=== PATIENT | male | born 1935 | race Caucasian/White ===

== ENCOUNTER 2022-01-23 15:48 | Inpatient (IN) | payer MEDICARE, OTHER ==
[2022-01-23] MEDS ORDERED: Lidocaine 2% Jelly 10 ML Urojet MUCMEM ONE (17:01)
[2022-01-23] MEDS ORDERED: Sodium Chloride 0.9% 10 ML Syringe FLUSH PRN (17:20)
[2022-01-23] MEDS ORDERED: Sodium Chloride 0.9% 1,000 ML IV STA (17:26)
[2022-01-23] MEDS ORDERED: cefTRIAXone 1 GM in Sodium Chloride 0.9% 100 ML IV SCH (19:45)
[2022-01-23] MEDS: Dextrose 5%-0.45% NaCl 1,000 ML IV SCH (20:59)
[2022-01-23] MEDS: Cetirizine 10 MG Tab PO SCH (20:59)
[2022-01-23] MEDS: Thiamine 100 MG Tab PO SCH (21:00)
[2022-01-23] MEDS ORDERED: Cetirizine 1 MG/ML Solution ML 120 ML Bottle PO SCH (21:00)
[2022-01-23] MEDS: cefTRIAXone 1 GM in Sodium Chloride 0.9% 100 ML IV SCH (21:01)
[2022-01-23] MEDS: Acetaminophen 325 MG Tab PO PRN (21:44)
[2022-01-24] MEDS: Dextrose 5%-0.45% NaCl 1,000 ML IV SCH ×2 (04:09→16:39)
[2022-01-24] MEDS ORDERED: Magnesium Sulfate/Water 4 GM in Premix Bag 1 BAG IV ONE (08:15)
[2022-01-24] MEDS ORDERED: Magnesium Oxide 400 MG Tab PO ONE (09:00)
[2022-01-24] MEDS ORDERED: Magnesium Sulfate (4.06 MEQ/ML) 5 GM/10 ML SDV IV ONE (09:00)
[2022-01-24] MEDS: Cetirizine 10 MG Tab PO SCH (09:02)
[2022-01-24] MEDS: amLODIPine 5 MG Tab PO SCH (09:02)
[2022-01-24] MEDS: Enoxaparin 30 MG/0.3 ML Syringe SUBCUT SCH (09:32)
[2022-01-24 15:42] LABS: VITAMIN D,25-HYDROXY 18.6 ng/ml (30.0-100.0)
[2022-01-24] MEDS: Acetaminophen 325 MG Tab PO PRN (20:42)
[2022-01-24] MEDS: cefTRIAXone 1 GM in Sodium Chloride 0.9% 100 ML IV SCH (20:43)
[2022-01-24] MEDS: Thiamine 100 MG Tab PO SCH (20:43)
[2022-01-25] MEDS: Dextrose 5%-0.45% NaCl 1,000 ML IV SCH ×2 (00:43→09:07)
[2022-01-25] MEDS: Acetaminophen 325 MG Tab PO PRN ×2 (05:34→09:03)
[2022-01-25] MEDS: Enoxaparin 30 MG/0.3 ML Syringe SUBCUT SCH (09:01)
[2022-01-25] MEDS: Cetirizine 10 MG Tab PO SCH (09:02)
[2022-01-25] MEDS: amLODIPine 5 MG Tab PO SCH (09:02)
[2022-01-25] MEDS ORDERED: Magnesium Sulfate/Water 4 GM in Premix Bag 1 BAG IV ONE (11:30)
[2022-01-25] MEDS ORDERED: Cholecalciferol (Vitamin D3) 5,000 UNIT Tab PO SCH (11:30)
[2022-01-25 11:56] VITALS: BP 116/58; PULSE 63
== END 2022-01-25 17:09 | disposition home or self-care (01) | DRG 683 ==
LOC: JD.ED 15:48 → JD.MS 18:16 → OBSVTOIN 19:20
PROVIDERS: ADMIT Pediatrics; ATTEND Internal Medicine
DX: N17.9 Acute kidney failure, unspecified (principal); N13.9 Obstructive and reflux uropathy, unspecified; I25.810 Atherosclerosis of coronary artery bypass graft(s) without angina pectoris; N13.8 Other obstructive and reflux uropathy; N28.89 Other specified disorders of kidney and ureter; N40.1 Benign prostatic hyperplasia with lower urinary tract symptoms; F10.20 Alcohol dependence, uncomplicated; E83.42 Hypomagnesemia; R19.7 Diarrhea, unspecified; N13.30 Unspecified hydronephrosis; N32.3 Diverticulum of bladder; Z20.822 Contact with and (suspected) exposure to COVID-19; H91.90 Unspecified hearing loss, unspecified ear; H54.7 Unspecified visual loss; L28.2 Other prurigo; I49.3 Ventricular premature depolarization; I15.1 Hypertension secondary to other renal disorders; J45.909 Unspecified asthma, uncomplicated; R35.0 Frequency of micturition; M19.90 Unspecified osteoarthritis, unspecified site; L03.012 Cellulitis of left finger; Z88.8 Allergy status to other drugs, medicaments and biological substances; Z79.899 Other long term (current) drug therapy; Z95.1 Presence of aortocoronary bypass graft; Z87.891 Personal history of nicotine dependence; Z90.49 Acquired absence of other specified parts of digestive tract; Z85.828 Personal history of other malignant neoplasm of skin; Z87.81 Personal history of (healed) traumatic fracture
CPT/HCPCS: 36415; 80053; 81001; 82397; 83735; 84550; 85025; 85652; 86140; U0002; 51702; 74176; 74176-26; 80048; 82306; 82570; 83835; 83945; 83970; 84100; 84156; 84260; 84300; A9270-GY; J0696; J1650; J3475; J7042

== ENCOUNTER 2022-02-16 13:51 | Emergency (ER) | payer MEDICARE, OTHER ==
[2022-02-16 14:01] VITALS: BP 157/72; PULSE 71
[2022-02-16] MEDS ORDERED: Lidocaine 2% Jelly 10 ML Urojet MUCMEM ONE (14:06)
== END 2022-02-16 15:14 | disposition home or self-care (01) ==
LOC: JD.ED 13:51
DX: T83.038A Leakage of other urinary catheter, initial encounter (principal); I10 Essential (primary) hypertension; Z88.5 Allergy status to narcotic agent; Z95.1 Presence of aortocoronary bypass graft; Z79.899 Other long term (current) drug therapy
CPT/HCPCS: 99283

== ENCOUNTER 2022-02-22 15:52 | Emergency (ER) | payer MEDICARE, OTHER ==
[2022-02-22 16:28] VITALS: BP 166/76; PULSE 82
[2022-02-22] MEDS ORDERED: Lidocaine 2% Jelly 10 ML Urojet MUCMEM ONE (16:29)
== END 2022-02-22 17:54 | disposition home or self-care (01) ==
LOC: JD.ED 15:52
DX: R33.9 Retention of urine, unspecified (principal); Z46.6 Encounter for fitting and adjustment of urinary device; I10 Essential (primary) hypertension; Z88.8 Allergy status to other drugs, medicaments and biological substances; Z79.899 Other long term (current) drug therapy
CPT/HCPCS: 51702; 99283-25

== ENCOUNTER 2023-01-21 16:58 | Inpatient (IN) | payer MEDICARE, OTHER ==
[2023-01-21] MEDS ORDERED: Sodium Chloride 0.9% 10 ML Syringe FLUSH PRN (19:12)
[2023-01-21 20:17] LABS: CORONAVIRUS COVID-19 NAA NEGATIVE (NEGATIVE)
[2023-01-21] MEDS ORDERED: Calcium Gluconate 10% 1 GM/10 ML SDV IVPUSH ONE (20:39)
[2023-01-21] MEDS: Sodium Chloride 0.9% 1,000 ML IV SCH (20:49)
[2023-01-21] MEDS: Potassium Chloride 10 MEQ in Premix Bag 1 BAG IV SCH ×3 (20:58→23:15)
[2023-01-21] MEDS ORDERED: cefTRIAXone 1 GM in Sodium Chloride 0.9% 100 ML IV ONE (21:15)
[2023-01-21] MEDS ORDERED: Pantoprazole 40 MG Tab.CR PO ONE (22:29)
[2023-01-21] MEDS ORDERED: Magnesium Sulfate/Water 2 GM in Premix Bag 1 BAG IV ONE (22:32)
[2023-01-21] MEDS ORDERED: Acetaminophen 325 MG Tab PO PRN (23:15)
[2023-01-21] MEDS ORDERED: Ondansetron 4 MG/2 ML SDV IVPUSH PRN (23:15)
[2023-01-22] MEDS: Potassium Chloride 10 MEQ in Premix Bag 1 BAG IV SCH ×9 (00:53→22:26)
[2023-01-22] MEDS ORDERED: Magnesium Sulfate/Water 2 GM/50 ML BAG IV ONE (03:54)
[2023-01-22] MEDS ORDERED: Calcium Gluconate 10% 1 GM/10 ML SDV IVPUSH ONE (03:55)
[2023-01-22] MEDS ORDERED: Potassium Chloride 20 MEQ Tab.ER PO ONE (04:32)
[2023-01-22] MEDS: Heparin Sodium 5,000 Units/ML Vial SUBCUT SCH ×3 (06:54→21:02)
[2023-01-22] MEDS ORDERED: oxyCODONE 5 MG Tab PO PRN (09:00)
[2023-01-22] MEDS ORDERED: Albuterol 6.7 GM Inhaler INH PRN (09:01)
[2023-01-22] MEDS: Acetaminophen 325 MG Tab PO PRN ×3 (09:13→23:05)
[2023-01-22] MEDS: Sodium Chloride 0.9% 1,000 ML IV SCH (10:19)
[2023-01-22] MEDS ORDERED: Calcium Gluconate 10% 1 GM/10 ML SDV IV ONE (13:05)
[2023-01-22] MEDS ORDERED: Magnesium Sulfate/Water 4 GM in Premix Bag 1 BAG IV ONE (13:05)
[2023-01-22] MEDS: Potassium Chloride 20 MEQ Tab.ER PO SCH ×2 (14:23→20:44)
[2023-01-22] MEDS ORDERED: Sodium Chloride 0.9% 1,000 ML IV SCH (15:00)
[2023-01-22] MEDS: cefTRIAXone 1 GM in Sodium Chloride 0.9% 100 ML IV SCH (20:44)
[2023-01-22] MEDS: Famotidine 10 MG Tab PO SCH (20:44)
[2023-01-23] MEDS: Heparin Sodium 5,000 Units/ML Vial SUBCUT SCH ×3 (06:46→21:41)
[2023-01-23] MEDS: Formoterol/Mometasone 200-5 MCG 8.8 GM Inhaler IH SCH ×2 (08:01→20:12)
[2023-01-23] MEDS: Cetirizine 10 MG Tab PO SCH (08:32)
[2023-01-23] MEDS: Famotidine 10 MG Tab PO SCH ×2 (08:32→20:06)
[2023-01-23] MEDS: Potassium Chloride 20 MEQ Tab.ER PO SCH ×2 (08:32→20:06)
[2023-01-23] MEDS: Acetaminophen 325 MG Tab PO PRN ×3 (08:36→21:41)
[2023-01-23] MEDS ORDERED: Diclofenac Sodium 1% Gel 100 GM Tube TOP PRN (14:16)
[2023-01-23] MEDS: cefTRIAXone 1 GM in Sodium Chloride 0.9% 100 ML IV SCH (20:03)
[2023-01-24] MEDS: Acetaminophen 325 MG Tab PO PRN (04:35)
[2023-01-24] MEDS: Heparin Sodium 5,000 Units/ML Vial SUBCUT SCH ×3 (06:22→20:59)
[2023-01-24] MEDS ORDERED: Magnesium Sulfate/Water 4 GM in Premix Bag 1 BAG IV ONE (06:48)
[2023-01-24] MEDS: Famotidine 10 MG Tab PO SCH ×2 (08:12→20:55)
[2023-01-24] MEDS: Cetirizine 10 MG Tab PO SCH (08:12)
[2023-01-24] MEDS: Potassium Chloride 20 MEQ Tab.ER PO SCH ×2 (08:12→20:54)
[2023-01-24] MEDS: Formoterol/Mometasone 200-5 MCG 8.8 GM Inhaler IH SCH ×2 (08:36→20:37)
[2023-01-24] MEDS: Calcium Carbonate/Vitamin D3 600 MG-200 Units Tab PO SCH ×2 (10:41→17:40)
[2023-01-24] MEDS: Magnesium Oxide 400 MG Tab PO SCH ×2 (10:41→20:54)
[2023-01-24] MEDS ORDERED: predniSONE 20 MG Tab PO SCH (11:54)
[2023-01-24] MEDS: cefTRIAXone 1 GM in Sodium Chloride 0.9% 100 ML IV SCH (20:53)
[2023-01-25] MEDS: Acetaminophen 325 MG Tab PO PRN (04:20)
[2023-01-25] MEDS: Heparin Sodium 5,000 Units/ML Vial SUBCUT SCH ×2 (04:21→06:32)
[2023-01-25] MEDS ORDERED: predniSONE 20 MG Tab PO SCH (08:00)
[2023-01-25] MEDS: Formoterol/Mometasone 200-5 MCG 8.8 GM Inhaler IH SCH (08:21)
[2023-01-25] MEDS: Potassium Chloride 20 MEQ Tab.ER PO SCH (08:33)
[2023-01-25] MEDS: Cetirizine 10 MG Tab PO SCH (08:33)
[2023-01-25] MEDS: Magnesium Oxide 400 MG Tab PO SCH (08:34)
[2023-01-25] MEDS: Calcium Carbonate/Vitamin D3 600 MG-200 Units Tab PO SCH ×2 (08:34→10:41)
[2023-01-25] MEDS: Famotidine 10 MG Tab PO SCH (08:34)
[2023-01-25 10:53] VITALS: BP 147/54; PULSE 71
== END 2023-01-25 12:37 | disposition home health service (06) | DRG 690 ==
LOC: JD.ED 16:58 → JD.MS 22:48
PROVIDERS: ADMIT Internal Medicine; ATTEND Internal Medicine
DX: N30.01 Acute cystitis with hematuria (principal); N18.4 Chronic kidney disease, stage 4 (severe); N18.9 Chronic kidney disease, unspecified; I12.9 Hypertensive chronic kidney disease with stage 1 through stage 4 chronic kidney disease, or unspecified chronic kidney disease; E87.6 Hypokalemia; E83.42 Hypomagnesemia; R53.1 Weakness; E83.51 Hypocalcemia; J45.909 Unspecified asthma, uncomplicated; M19.90 Unspecified osteoarthritis, unspecified site; R51.9 Headache, unspecified; Z66 Do not resuscitate; H91.90 Unspecified hearing loss, unspecified ear; H54.7 Unspecified visual loss; N13.9 Obstructive and reflux uropathy, unspecified; J44.9 Chronic obstructive pulmonary disease, unspecified; N40.0 Benign prostatic hyperplasia without lower urinary tract symptoms; Z20.822 Contact with and (suspected) exposure to COVID-19; M10.9 Gout, unspecified; R79.89 Other specified abnormal findings of blood chemistry; Z79.899 Other long term (current) drug therapy; Z98.890 Other specified postprocedural states; Z79.51 Long term (current) use of inhaled steroids; Z85.89 Personal history of malignant neoplasm of other organs and systems; Z95.1 Presence of aortocoronary bypass graft; Z98.49 Cataract extraction status, unspecified eye; Z90.49 Acquired absence of other specified parts of digestive tract; Z87.891 Personal history of nicotine dependence; Z83.6 Family history of other diseases of the respiratory system
CPT/HCPCS: 0241U; 36415; 70450; 80048; 80053; 81001; 83605; 83735; 84484; 85025; 85027; 86140; 87040; 87086; 93005; 94640; 94760; 94761; 96361; 96365; 96366; 96375; 97116; 97162; 97166; 97530; 99285; 93010; A9270-GY; J0610; J0696; J1644; J3475; J3480; J3490; J7030; J7512

== ENCOUNTER 2024-06-14 10:40 | Emergency (ER) | payer MEDICARE, OTHER ==
[2024-06-14 11:30] LABS: BASOPHILS ABSOLUTE AUTO 0.1 K/mm3 (0.0-0.2); BASOPHILS PERCENT AUTO 0.8 % (0.0-1.0); EOSINOPHILS ABSOLUTE AUTO 0.2 K/mm3 (0.0-0.4); HEMATOCRIT 37.2 % (42.0-52.0); HEMOGLOBIN 11.7 gm/dl (14.0-18.0); IMMATURE GRAN ABSOLUTE AUTO 0.04 K/mm3 (0.00-0.05); IMMATURE GRAN PERCENT AUTO 0.4 % (0.0-0.4); INR 1.12; LYMPHOCYTES ABSOLUTE AUTO 1.9 K/mm3 (1.0-4.8); LYMPHOCYTES PERCENT AUTO 21.2 % (24.0-44.0); MEAN CORPUSCULAR HEMOGLOBIN 26.4 pg (28.0-32.0); MEAN CORPUSCULAR HGB CONC 31.5 g/dl (32.0-36.0); MEAN CORPUSCULAR VOLUME 83.8 fl (83.0-99.0); MEAN PLATELET VOLUME 10.2 fl (9.4-12.4); MONOCYTES ABSOLUTE AUTO 0.8 K/mm3 (0.0-0.8); MONOCYTES PERCENT AUTO 8.8 % (0.0-8.0); NEUTROPHILS PERCENT AUTO 66.8 % (41.0-71.0); PLATELET COUNT,PLT 268 K/mm3 (150-400); PROTHROMBIN TIME 11.8 SECONDS (9.7-12.0); RED BLOOD CELL COUNT 4.44 M/mm3 (4.52-5.90); WHITE BLOOD CELL COUNT,WBC 8.93 K/mm3 (3.9-11.3)
[2024-06-14 11:31] LABS: PTT,PARTIAL THROMBOPLSTIN TIME 26.8 SECONDS (21.7-31.4)
[2024-06-14 11:48] LABS: A/G RATIO 0.9 (1-2); ALBUMIN 3.6 g/dl (3.4-5.0); BILIRUBIN TOTAL 0.5 mg/dL (0.2-1.0); BUN/CREATININE RATIO 16.3 (14-18); CREATININE 1.9 mg/dL (0.7-1.3); EST CRCL DRUG DOSING (CG) 30.06 mL/min; MAGNESIUM 0.7 mg/dL (1.8-2.4); PROTEIN TOTAL,TP 7.7 g/dl (6.4-8.2)
[2024-06-14] MEDS ORDERED: Magnesium Sulfate/Water 2 GM in Premix Bag 1 BAG IV SCH (12:00)
[2024-06-14] MEDS: Lactated Ringers 1,000 ML IV SCH (12:39)
[2024-06-14] MEDS: Magnesium Sulfate/Water 2 GM in Premix Bag 1 BAG IV ONE ×2 (12:40→14:12)
[2024-06-14] MEDS: Potassium Chloride 10 MEQ in Premix Bag 1 BAG IV SCH (12:40)
[2024-06-14] MEDS: Aspirin 81 MG Tab.Chew PO ONE (14:12)
[2024-06-14] MEDS: Heparin Sodium 5,000 Units/ML Vial IVPUSH ONE (14:39)
[2024-06-14] MEDS: Heparin Sodium/D5W 25,000 UNITS/500 ML BAG IV SCH (14:40)
[2024-06-14 19:44] VITALS: BP 141/65; PULSE 62
== END 2024-06-14 17:20 ==
LOC: JD.ED 10:40
DX: I21.4 Non-ST elevation (NSTEMI) myocardial infarction (principal); I10 Essential (primary) hypertension; J45.909 Unspecified asthma, uncomplicated; Z90.49 Acquired absence of other specified parts of digestive tract; Z88.8 Allergy status to other drugs, medicaments and biological substances; Z79.899 Other long term (current) drug therapy
CPT/HCPCS: 36415; 71045; 80053; 83735; 83880; 84484; 85025; 85610; 85730; 93005; 96365; 96366; 96367; 96368; 99285; A9270; J1644; J3475; J3480; J7120